=== PATIENT | female | born 1955 | race Native Hawaiian/Other Pacific Islander ===

== ENCOUNTER 2018-06-27 12:38 | Emergency (ER) | payer OTHER, MEDICAID, SELFPAY ==
[2018-06-27 12:49] VITALS: BP 121/83; PULSE 128; RESP 20; TEMP 36.3; O2SAT 99
[2018-06-27 13:13] VITALS: BP 102/82; PULSE 129; RESP 18; O2SAT 98
--- NOTE | 2018-06-27 13:43 | PC.NURSE ---
pelvic done/ by , I and D of bartholin cyst/ cx taken.
[2018-06-27 13:50] VITALS: PULSE 128; O2SAT 100
--- NOTE | 2018-06-27 13:50 | PC.NURSE ---
Dr Putnam aware of pts hr,ok with her to d/c to home. pt states that she is supposed to take her heart meds at 1400. pt taking them now
[2018-06-27] MEDS: TRIMETH/SULFA 160/800 (DS) TABLET 1 TAB PO (13:56)
--- NOTE | 2018-06-27 14:18 | PC.NURSE ---
abcess right labia/ cx
== END 2018-06-27 14:06 | disposition home or self-care (01) ==
PROVIDERS: Emergency Provider Emergency Medicine; PCP Family Medicine
DX: N76.4 Abscess of vulva (principal)
CPT/HCPCS: 81001; 87070; 87075; 87086; 87205

== ENCOUNTER 2018-06-27 22:19 | Emergency (ER) | payer OTHER, MEDICAID, SELFPAY ==
[2018-06-27 17:06] LABS: Appearance Urine UA SL CLOUDY; Bilirubin Urine UA NEGATIVE (NEGATIVE); Color Urine UA YELLOW; Glucose Urine UA NEGATIVE (Normal); Ketones Urine UA NEGATIVE (NEGATIVE); Leukocyte Esterase Urine UA 2+ (NEGATIVE); Nitrite Urine UA NEGATIVE (Negative); Occult Blood Urine UA TRACE-LYSED (Negative); Protein Urine UA NEGATIVE (Negative); Specific Gravity Urine UA 1.015 (1.000-1.035); Urobilinogen Urine UA 0.2 E.U./dL (0.2)
[2018-06-27 17:20] LABS: Bacteria Urine Many (>30); Culture Indicated Urine Specimen Cultured; RBC Urine 0-1/HPF (0-5/HPF); Squamous Epithelial Cell Urine None Seen; WBC Urine 10-30/HPF (0-5/HPF)
[2018-06-27 22:24] VITALS: BP 130/87; PULSE 126; RESP 20; TEMP 36.9; O2SAT 98
[2018-06-27 22:26] VITALS: BP 130/87; PULSE 126; RESP 20; TEMP 36.9; O2SAT 98
--- NOTE | 2018-06-27 23:08 | PC.NURSE ---
Patient seen and evaluated today in ER. Sent home after I& D of labia. Concerned of ongoing bleeding. Patient reports small clot present on pad. Not saturating multiple pads.
--- NOTE | 2018-06-27 23:09 | ED.FEMALEGU ---
HPI - Female Genitourinary General Chief complaint: Vaginal Bleeding Stated complaint: Vaginal bleeding / Lesion not getting better Time Seen by Provider: 06/27/18 22:27 Source: patient and family Mode of arrival: ambulatory Limitations: no limitations History of Present Illness HPI Narrative: 62-year-old female returns for evaluation of a labial infection. She was seen and evaluated earlier and had an abscess on her right labia incised and drained with some production of purulent material. She was sent home with instructions to contact her primary care provider and lime hide inspector as well as take a prescription for Bactrim. She returns to the emergency department stating that she had a [id number] amount of bleeding but that had since stopped. She is not dizzy nor weak or lightheaded. MD Complaint: vaginal bleeding Onset (ago): hour(s) Location: labia Exacerbating factors: none Vaginal discharge: blood Related Data Previous Rx's Medication Instructions Recorded bupropion HCl SR 150 mg tablet,12 150 mg PO BID #60 tab 05/24/18 hr sustained-release clotrimazole 1 % topical cream 1 applictn TOP BID #30 gram 05/24/18 diltiazem CD 240 mg 240 mg PO QDAY #30 cap 05/24/18 capsule,extended release 24 hr furosemide 40 mg tablet 40 mg PO QDAY #30 tab 05/24/18 glimepiride 2 mg tablet 2 mg PO TID #90 tab 05/24/18 metoprolol tartrate 50 mg tablet 50 mg PO BID #60 tab 05/24/18 warfarin 5 mg tablet See Label Instructions PO .COMPLEX 05/24/18 #90 tab hydrocodone-acetaminophen 1 tab PO Q4-6H PRN #10 tab 06/27/18 sulfamethoxazole-trimethoprim 1 tab PO BID #14 tab 06/27/18 [Bactrim DS] Allergies Allergy/AdvReac Type Severity Reaction Status Date / Time Penicillins [PENICILLINS] Allergy Severe THROAT Verified 06/27/18 22:26 SWELLING Review of Systems Review of Systems All systems reviewed & are unremarkable except as noted in HPI and below Constitutional Denies chills, Denies fever(s), Denies lethargy and Denies weakness Eyes Denies change in vision, Denies eye discharge, Denies irritation and Denies loss of vision ENT Ears, Nose, Mouth, and Throat: Denies change in voice, Denies neck pain and Denies sore throat Cardiovascular Denies chest pain, Denies irregular heart rhythm, Denies lightheadedness, Denies palpitations, Denies dyspnea, Denies dyspnea on exertion and Denies orthopnea Respiratory Denies cough, Denies dyspnea, Denies dyspnea on exertion and Denies wheezing Gastrointestinal Gastrointestinal: Denies abdominal pain, Denies change in bowel habits, Denies diarrhea, Denies nausea and Denies vomiting Genitourinary Reports abnormal vaginal bleeding, Denies hematuria, Denies flank pain, Denies urinary incontinence and Denies urinary urgency Musculoskeletal Denies neck pain Integumentary/Breasts Denies pruritus, Denies erythema, Denies rash and Denies wounds Neurologic Denies confusion, Denies loss of vision and Denies weakness Psychiatric Denies anxiety, Denies confusion, Denies depression, Denies homicidal ideation and Denies suicidal ideation Endocrine Denies palpitations Hematologic/Lymphatic Denies easy bruising Allergic/Immunologic Denies wheezing [facility] Medical History Allergic rhinitis (Chronic) Anxiety (Chronic) Atrial fibrillation (Chronic 2017) Cardiomyopathy (Chronic) Depression (Chronic) Diabetes (Chronic) Diabetic neuropathy (Chronic) GERD (gastroesophageal reflux disease) (Chronic) Generalized headaches (Chronic) Hypertension (Chronic) Recurrent sinusitis (Chronic) Sleep apnea (Chronic) CHF (congestive heart failure) (Resolved) Chickenpox (Resolved) Foot pain (Resolved) Hernia (Resolved ~1965) Measles (Resolved) Substance abuse (Resolved ~2001) Family History Father Pancreatic cancer Diabetes mellitus Heart disease Hypertension High cholesterol Mother Pancreatic cancer High cholesterol Grandmother Diabetes mellitus Heart disease Hypertension High cholesterol Cancer Sister Age: 61 Mental health problem Cancer Sister Cancer Grandmother No problems noted. Grandfather Cancer Social History Smoking Status: Current every day smoker Exam Narrative Exam Narrative: GEN: 62 yr old obese female is AOx3 and in mild distress, anxious, but not in pain EYES: Pupils are equal, round, and reactive to light and accommodation. Extraoccular muscles are intact bilaterally. There is no subconjunctival hemorrhage or exudate. CHEST: Lungs are clear to auscultation bilaterally and free of wheezes, rales, or rhonchi. Heart rate is regular rhythm, there are no murmurs, clicks, rubs, or gallops. There is no chest wall tenderness. ABD: Abdomen is soft and nontender. There is no guarding or rebound. Bowel sounds are normal in all 4 quadrants. There is no mass or organomegaly. : external genitalia examined with patient's permission and nursing private tutor at bedside. She has some induration, swelling, and pain of R labia without any active drainage or bleeding. EXT: Full painless ROM of all extremities with no loss of sensation or strength. SKIN: Warm, pink, and dry. No erythema or rash Initial Vital Signs Initial Vital Signs: Vital Signs Temperature 98.4 F 06/27/18 22:24 Pulse Rate 126 H 06/27/18 22:24 Respiratory Rate 20 06/27/18 22:24 Blood Pressure 130/87 06/27/18 22:24 Pulse Oximetry 98 06/27/18 22:24 Course Orders Ordered: Discontinued Medications Hydrocodone Bitart/Acetaminophen ([place] 5/325) 1 tab PO NOW ONE Stop: 06/27/18 23:30 Last Admin: 06/27/18 23:34 Dose: 1 tab Vital Signs - 8 hr 06/27/18 22:24 06/27/18 22:26 06/27/18 23:40 Temperature 98.4 F 98.4 F Pulse Rate 126 H 126 H 105 H Respiratory Rate 20 20 18 Blood Pressure 130/87 130/82 Blood Pressure [Left Wrist] 130/87 Pulse Oximetry 98 98 98 Discharge Plan Departure Patient Disposition: Home Clinical Impression: Bartholin cyst Discharge Date/Time: 06/27/18 23:40 Interventions: ED Discharge Assessment Last Done: 06/27/18 23:40 Instructions: DI for Bartholin Gland Cyst Activity Restrictions/Additional Instructions: *You have been diagnosed with [ infected Bartholin's cyst with minimal bleeding ] *What to do: *Take medications as directed. Remember, antibiotics will very likely alter your Coumadin levels which will need to be followed closely to avoid any bleeding complications *Follow up with your primary care provider in 2-3 days, call for an appointment. Let them know you were seen in the Emergency Department and that we ask that you be seen in follow up. Additionally, it would be yadav to follow up with a lime hide inspector to follow the resolution of this abscess *Return to ER if you should have any new, worsening or concerning symptoms Prescriptions: No Action clotrimazole [Clotrimazole AF] 1 % cream 1 applictn TOP BID Qty: 30 RF: 2 bupropion HCl [Wellbutrin SR] 150 mg tablet extended release 12 hr 150 mg PO BID Qty: 60 RF: 0 diltiazem HCl 240 mg capsule,extended release 24hr 240 mg PO QDAY Qty: 30 RF: 0 furosemide 40 mg tablet 40 mg PO QDAY Qty: 30 RF: 0 glimepiride 2 mg tablet 2 mg PO TID Qty: 90 RF: 0 metoprolol tartrate 50 mg tablet 50 mg PO BID Qty: 60 RF: 0 warfarin [Coumadin] 5 mg tablet See Label Instructions PO .COMPLEX Qty: 90 RF: 0 sulfamethoxazole-trimethoprim [Bactrim DS] 800-160 mg tablet 1 tab PO BID Qty: 14 RF: 0 hydrocodone-acetaminophen 5-325 mg tablet 1 tab PO Q4-6H PRN (Reason: pain) Qty: 10 RF: 0 Referrals: Kimmie Smith MD [Physician] - Connie Novak DO [Primary Care Provider] -
[2018-06-27] MEDS: HYDROCODONE/ACET 5/325 TABLET 1 TAB PO (23:34)
[2018-06-27 23:40] VITALS: BP 130/82; PULSE 105; RESP 18; O2SAT 98
--- NOTE | 2018-06-28 02:26 | ED_ITS ---
HPI - Female Genitourinary General Chief complaint: Vaginal Bleeding Stated complaint: Vaginal bleeding / Lesion not getting better Time Seen by Provider: 06/27/18 22:27 Source: patient and family Mode of arrival: ambulatory Limitations: no limitations History of Present Illness HPI Narrative: 62-year-old female returns for evaluation of a labial infection. She was seen and evaluated earlier and had an abscess on her right labia incised and drained with some production of purulent material. She was sent home with instructions to contact her primary care provider and outside rigger as well as take a prescription for Bactrim. She returns to the emergency department stating that she had a [id number] amount of bleeding but that had since stopped. She is not dizzy nor weak or lightheaded. MD Complaint: vaginal bleeding Onset (ago): hour(s) Location: labia Exacerbating factors: none Vaginal discharge: blood Related Data Previous Rx's Medication Instructions Recorded bupropion HCl SR 150 mg tablet,12 150 mg PO BID #60 tab 05/24/18 hr sustained-release clotrimazole 1 % topical cream 1 applictn TOP BID #30 gram 05/24/18 diltiazem CD 240 mg 240 mg PO QDAY #30 cap 05/24/18 capsule,extended release 24 hr furosemide 40 mg tablet 40 mg PO QDAY #30 tab 05/24/18 glimepiride 2 mg tablet 2 mg PO TID #90 tab 05/24/18 metoprolol tartrate 50 mg tablet 50 mg PO BID #60 tab 05/24/18 warfarin 5 mg tablet See Label Instructions PO .COMPLEX 05/24/18 #90 tab hydrocodone-acetaminophen 1 tab PO Q4-6H PRN #10 tab 06/27/18 sulfamethoxazole-trimethoprim 1 tab PO BID #14 tab 06/27/18 [Bactrim DS] Allergies Allergy/AdvReac Type Severity Reaction Status Date / Time Penicillins [PENICILLINS] Allergy Severe THROAT Verified 06/27/18 22:26 SWELLING Review of Systems Review of Systems All systems reviewed & are unremarkable except as noted in HPI and below Constitutional Denies chills, Denies fever(s), Denies lethargy and Denies weakness Eyes Denies change in vision, Denies eye discharge, Denies irritation and Denies loss of vision ENT Ears, Nose, Mouth, and Throat: Denies change in voice, Denies neck pain and Denies sore throat Cardiovascular Denies chest pain, Denies irregular heart rhythm, Denies lightheadedness, Denies palpitations, Denies dyspnea, Denies dyspnea on exertion and Denies orthopnea Respiratory Denies cough, Denies dyspnea, Denies dyspnea on exertion and Denies wheezing Gastrointestinal Gastrointestinal: Denies abdominal pain, Denies change in bowel habits, Denies diarrhea, Denies nausea and Denies vomiting Genitourinary Reports abnormal vaginal bleeding, Denies hematuria, Denies flank pain, Denies urinary incontinence and Denies urinary urgency Musculoskeletal Denies neck pain Integumentary/Breasts Denies pruritus, Denies erythema, Denies rash and Denies wounds Neurologic Denies confusion, Denies loss of vision and Denies weakness Psychiatric Denies anxiety, Denies confusion, Denies depression, Denies homicidal ideation and Denies suicidal ideation Endocrine Denies palpitations Hematologic/Lymphatic Denies easy bruising Allergic/Immunologic Denies wheezing [facility] Medical History Allergic rhinitis (Chronic) Anxiety (Chronic) Atrial fibrillation (Chronic 2017) Cardiomyopathy (Chronic) Depression (Chronic) Diabetes (Chronic) Diabetic neuropathy (Chronic) GERD (gastroesophageal reflux disease) (Chronic) Generalized headaches (Chronic) Hypertension (Chronic) Recurrent sinusitis (Chronic) Sleep apnea (Chronic) CHF (congestive heart failure) (Resolved) Chickenpox (Resolved) Foot pain (Resolved) Hernia (Resolved ~1965) Measles (Resolved) Substance abuse (Resolved ~2001) Family History Father Pancreatic cancer Diabetes mellitus Heart disease Hypertension High cholesterol Mother Pancreatic cancer High cholesterol Grandmother Diabetes mellitus Heart disease Hypertension High cholesterol Cancer Sister Age: 61 Mental health problem Cancer Sister Cancer Grandmother No problems noted. Grandfather Cancer Social History Smoking Status: Current every day smoker Exam Narrative Exam Narrative: GEN: 62 yr old obese female is AOx3 and in mild distress, anxious, but not in pain EYES: Pupils are equal, round, and reactive to light and accommodation. Extraoccular muscles are intact bilaterally. There is no subconjunctival hemorrhage or exudate. CHEST: Lungs are clear to auscultation bilaterally and free of wheezes, rales, or rhonchi. Heart rate is regular rhythm, there are no murmurs, clicks, rubs, or gallops. There is no chest wall tenderness. ABD: Abdomen is soft and nontender. There is no guarding or rebound. Bowel sounds are normal in all 4 quadrants. There is no mass or organomegaly. : external genitalia examined with patient's permission and nursing relief pharmacist at bedside. She has some induration, swelling, and pain of R labia without any active drainage or bleeding. EXT: Full painless ROM of all extremities with no loss of sensation or strength. SKIN: Warm, pink, and dry. No erythema or rash Initial Vital Signs Initial Vital Signs: Vital Signs Temperature 98.4 F 06/27/18 22:24 Pulse Rate 126 H 06/27/18 22:24 Respiratory Rate 20 06/27/18 22:24 Blood Pressure 130/87 06/27/18 22:24 Pulse Oximetry 98 06/27/18 22:24 Course Orders Ordered: Discontinued Medications Hydrocodone Bitart/Acetaminophen ([place] 5/325) 1 tab PO NOW ONE Stop: 06/27/18 23:30 Last Admin: 06/27/18 23:34 Dose: 1 tab Vital Signs - 8 hr 06/27/18 22:24 06/27/18 22:26 06/27/18 23:40 Temperature 98.4 F 98.4 F Pulse Rate 126 H 126 H 105 H Respiratory Rate 20 20 18 Blood Pressure 130/87 130/82 Blood Pressure [Left Wrist] 130/87 Pulse Oximetry 98 98 98 Discharge Plan Departure Patient Disposition: Home Clinical Impression: Bartholin cyst Discharge Date/Time: 06/27/18 23:40 Interventions: ED Discharge Assessment Last Done: 06/27/18 23:40 Instructions: DI for Bartholin Gland Cyst Activity Restrictions/Additional Instructions: *You have been diagnosed with [ infected Bartholin's cyst with minimal bleeding ] *What to do: *Take medications as directed. Remember, antibiotics will very likely alter your Coumadin levels which will need to be followed closely to avoid any bleeding complications *Follow up with your primary care provider in 2-3 days, call for an appointment. Let them know you were seen in the Emergency Department and that we ask that you be seen in follow up. Additionally, it would be yadav to follow up with a outside rigger to follow the resolution of this abscess *Return to ER if you should have any new, worsening or concerning symptoms Prescriptions: No Action clotrimazole [Clotrimazole AF] 1 % cream 1 applictn TOP BID Qty: 30 RF: 2 bupropion HCl [Wellbutrin SR] 150 mg tablet extended release 12 hr 150 mg PO BID Qty: 60 RF: 0 diltiazem HCl 240 mg capsule,extended release 24hr 240 mg PO QDAY Qty: 30 RF: 0 furosemide 40 mg tablet 40 mg PO QDAY Qty: 30 RF: 0 glimepiride 2 mg tablet 2 mg PO TID Qty: 90 RF: 0 metoprolol tartrate 50 mg tablet 50 mg PO BID Qty: 60 RF: 0 warfarin [Coumadin] 5 mg tablet See Label Instructions PO .COMPLEX Qty: 90 RF: 0 sulfamethoxazole-trimethoprim [Bactrim DS] 800-160 mg tablet 1 tab PO BID Qty: 14 RF: 0 hydrocodone-acetaminophen 5-325 mg tablet 1 tab PO Q4-6H PRN (Reason: pain) Qty: 10 RF: 0 Referrals: Kimmie Smith MD [Physician] - Connie Novak DO [Primary Care Provider] -
== END 2018-06-27 23:40 | disposition home or self-care (01) ==
PROVIDERS: Emergency Medicine; Emergency Provider Emergency Medicine; Family Provider Family Medicine; PCP Family Medicine
DX: N75.0 Cyst of Bartholin's gland (principal)
CPT/HCPCS: 81001; 87070; 87075; 87077; 87086; 87147; 87186; 87205; 99282; 99283